=== PATIENT | male | born 1970 | race Caucasian/White ===

== ENCOUNTER → 2019-11-21 | Day surgery (SDC) | payer BC ==
[2019-11-18 08:52] VITALS: BMI 31.7
[~2019-11-21] MED LIST: LACTATED RINGERS 1,000 ML IV SCH; LIDOCAINE 1% INJ 10MG/ML (20 ML MDV) ONE; PROPOFOL 10 MG/ML 20 ML VIAL IV ONE
[2019-11-21 09:47] VITALS: RESP 16; TEMP 97.6
--- NOTE | 2019-11-21 10:58 | P.PCN ---
Date of Procedure: 11/21/19 Description of Procedure: BRIEF HISTORY: Patient is a 49-year-old female presenting for screening malignant neoplasm colon. Denies any prior colonoscopy. Denies any family history of colon cancer. Denies any change in bowels, blood per rectum or abdominal pain. PROCEDURE PERFORMED: Colonoscopy with polypectomy. PREOPERATIVE DIAGNOSIS: Screening for malignant neoplasm, no prior colonoscopy. ESTIMATED BLOOD LOSS: Minimal. IV sedation per Anesthesia. PROCEDURE: After informed consent was obtained, the patient, was brought into the endoscopy unit. IV sedation was administered by Anesthesia under continuous monitoring. Digital rectal examination was normal. Initially the Olympus CF-190 flexible video colonoscope was then inserted in the rectum, gradually advanced into the cecum without any difficulty. Careful examination was performed as the scope was gradually being withdrawn. Ileocecal valve and the appendiceal orifice were visualized and appeared normal. Prep was fair with a large amount of semisolid stool in the right colon which could not be completely lavaged, impeding complete visualization of the mucosa. Mucosa of the cecum, ascending colon, transverse colon, descending colon, sigmoid colon, and rectum which was able to be visualized did appear normal. Diminutive 2 mm transverse colon polyp removed with cold forcep polypectomy. Retroflexion was performed in the rectum and no lesions were seen. The patient tolerated the procedure well. IMPRESSION: Diminutive 2 mm transverse colon polyp removed with cold forcep polypectomy. Fair prep with a large amount of semisolid stool in the right colon which could not completely be lavaged and suctioned, prohibiting complete visualization of the mucosa. RECOMMENDATIONS: Findings of this examination were discussed with the patient and his family. Okay to resume diet. Okay to resume medications. Await pathology from polypectomy. Based on prep recommendation would be for repeat colonoscopy in 1 year, with consideration for a 2 day prep if the patient did not complete his prep prior to today's procedure.
[2019-11-21 11:25] VITALS: BP 127/86; PULSE 63
== END ==
LOC: ORWHC2ENDO 09:10
PROVIDERS: ATTEND Internal Medicine
DX: Z12.11 Encounter for screening for malignant neoplasm of colon (principal); K63.5 Polyp of colon; Z80.0 Family history of malignant neoplasm of digestive organs; Z87.891 Personal history of nicotine dependence; K21.9 Gastro-esophageal reflux disease without esophagitis; Z90.49 Acquired absence of other specified parts of digestive tract; I10 Essential (primary) hypertension; G47.33 Obstructive sleep apnea (adult) (pediatric); B19.20 Unspecified viral hepatitis C without hepatic coma; Z79.899 Other long term (current) drug therapy
CPT/HCPCS: 88305; 45380; J2001; J2704

== ENCOUNTER → 2019-12-27 | Outpatient (CLI) | payer BC ==
--- NOTE | 2019-12-27 08:05 | US ---
EXAMINATION TYPE: US liver DATE OF EXAM: 12/27/2019 COMPARISON: CT liver biopsy January 29, 2012. CLINICAL HISTORY: B18.2 CHRONIC VIRAL HEP C. Chronic Hep C EXAM MEASUREMENTS: Liver Length: 14.9 cm CBD: 0.7 cm Right Kidney: 10.3 x 5.3 x 5.1 cm Pancreas: wnl, tail obscured by overlying bowel gas Liver: Visualized mostly intercostally, visualized portions appeared wnl Gallbladder: Surgically absent Evidence for sonographic Katz's sign: No CBD: wnl for post ashwini Right Kidney: Cyst upper pole= 1.4 x 1.5 x 1.4 cm/ possible 6mm calculus lower pole Visualized portion of pancreas is unremarkable, portions are obscured by overlying bowel gas. Visuali zed liver is heterogeneously hyperechoic without intrahepatic ductal dilatation. Evaluation for focal masses suboptimal due to the heterogeneity. Simple appearing 1.4 cm thin-walled cyst right kidney up per pole level. Gallbladder noted surgically absent. IMPRESSION: Heterogeneous hyperechoic appearance of the liver consistent with diffuse fatty infiltrat ion and/or underlying hepatocellular disease. No ascites currently. Patient may benefit with ultrasou nd guided elastography evaluation.
[2019-12-27 08:32] LABS: Basophils % (A) 0 %; Eosinophils # (A) 0.1 k/uL (0-0.7); Eosinophils % (A) 2 %; HCT 45.9 % (39.0-53.0); HGB 15.9 gm/dL (13.0-17.5); Lymphocytes # (A) 2.1 k/uL (1.0-4.8); Lymphocytes % (A) 37 %; MCH 30.6 pg (25.0-35.0); MCHC 34.6 g/dL (31.0-37.0); MCV 88.2 fL (80.0-100.0); Mean Platelet Volume 7.5; Monocytes # (A) 0.3 k/uL (0-1.0); Monocytes % (A) 5 %; Neutrophils # (A) 3.1 k/uL (1.3-7.7); Neutrophils % (A) 55 %; Platelet Count 276 k/uL (150-450); Prothrombin Time 10.4 sec (9.0-12.0); RBC 5.21 m/uL (4.30-5.90); RDW 12.3 % (11.5-15.5); WBC 5.7 k/uL (3.8-10.6)
[2019-12-27 08:53] LABS: ALT 86 U/L (4-49); AST 58 U/L (17-59); African American GFR (CKD) >90 (>60 ml/min/1.73 sqM); Albumin 4.4 g/dL (3.5-5.0); Alkaline Phosphatase 50 U/L (38-126); Anion Gap 7 mmol/L; Blood Urea Nitrogen 18 mg/dL (9-20); Calcium 9.7 mg/dL (8.4-10.2); Carbon Dioxide 29 mmol/L (22-30); Chloride 103 mmol/L (98-107); Glucose 95 mg/dL (74-99); Non-African American GFR(CKD) 89 (>60 ml/min/1.73 sqM); Potassium 4.1 mmol/L (3.5-5.1); Sodium 139 mmol/L (137-145); Total Bilirubin 0.7 mg/dL (0.2-1.3); Total Protein 7.6 g/dL (6.3-8.2)
[2019-12-27 16:29] LABS: Alpha Fetoprotein, Tumor Mkr 4.2 ng/mL (0.0-7.9)
[2019-12-27 17:52] LABS: HIV 1 AB Non-Reactive (Non-Reactive); HIV 2 AB Non-Reactive (Non-Reactive); HIV AB P24 Non-Reactive (Non-Reactive); HIV P24 AG Non-Reactive (Non-Reactive)
[2019-12-27 18:09] LABS: Hepatitis A Antibody IgM Non-Reactive (Non-Reactive); Hepatitis B Surface Antigen Non-Reactive (Non-Reactive); Hepatitis C IgG Antibody Reactive (Non-Reactive)
[2019-12-27 18:10] LABS: Hepatitis B Core IgM Non-Reactive (Non-Reactive)
[2019-12-30 11:39] LABS: HCV Qualitative Result DETECTED (Not detected); HCV Quant Log 5.59 (<1.08)
== END | disposition home or self-care (01) ==
LOC: RADUSWWP 07:33
PROVIDERS: ATTEND Nurse Practitioner
DX: B18.2 Chronic viral hepatitis C (principal)
CPT/HCPCS: 76705; 80053; 80074; 82105; 85025; 85610; 87390; 87522

== ENCOUNTER → 2020-03-02 | Outpatient (CLI) | payer BC ==
[2020-03-02 09:13] LABS: Basophils % (A) 1 %; Eosinophils # (A) 0.1 k/uL (0-0.7); Eosinophils % (A) 2 %; HCT 46.3 % (39.0-53.0); HGB 16.2 gm/dL (13.0-17.5); Lymphocytes # (A) 2.5 k/uL (1.0-4.8); Lymphocytes % (A) 38 %; MCH 31.8 pg (25.0-35.0); MCV 90.8 fL (80.0-100.0); Mean Platelet Volume 7.9; Monocytes # (A) 0.4 k/uL (0-1.0); Monocytes % (A) 7 %; Neutrophils # (A) 3.3 k/uL (1.3-7.7); Neutrophils % (A) 50 %; Platelet Count 250 k/uL (150-450); RDW 12.7 % (11.5-15.5); WBC 6.6 k/uL (3.8-10.6)
[2020-03-02 09:25] LABS: Prothrombin Time 10.2 sec (9.0-12.0)
[2020-03-02 15:29] LABS: African American GFR (CKD) 82.4 (60.0-200.0); Albumin 4.5 g/dL (3.80-4.90); Albumin/Globulin Ratio 1.67 (1.60-3.17); Anion Gap 6.9 mmol/L (4.00-12.00); BUN/Creat Ratio 15.83 Ratio (12.00-20.00); Calcium 9.9 mg/dL (8.7-10.3); Carbon Dioxide 30.1 mmol/L (21.6-31.8); Globulin 2.7 g/dL (1.6-3.3); Non-African American GFR(CKD) 71.1 (60.0-200.0); Potassium 4.3 mmol/L (3.5-5.5); Total Protein 7.2 g/dL (6.2-8.2)
== END | disposition home or self-care (01) ==
LOC: LABWHC1 08:14
PROVIDERS: ATTEND Internal Medicine
DX: B18.2 Chronic viral hepatitis C (principal)
CPT/HCPCS: 36415; 80053; 85025; 85610; 87522

== ENCOUNTER → 2020-06-04 | Outpatient (CLI) | payer BC ==
[2020-06-04 08:45] LABS: Basophils # (A) 0.1 k/uL (0-0.2); Basophils % (A) 1 %; Eosinophils # (A) 0.1 k/uL (0-0.7); Eosinophils % (A) 1 %; HCT 48.5 % (39.0-53.0); HGB 16.5 gm/dL (13.0-17.5); Lymphocytes # (A) 2.6 k/uL (1.0-4.8); Lymphocytes % (A) 40 %; MCH 30.6 pg (25.0-35.0); MCV 89.8 fL (80.0-100.0); Mean Platelet Volume 7.7; Monocytes # (A) 0.4 k/uL (0-1.0); Monocytes % (A) 6 %; Neutrophils # (A) 3.2 k/uL (1.3-7.7); Neutrophils % (A) 49 %; Platelet Count 255 k/uL (150-450); RDW 12.5 % (11.5-15.5); WBC 6.4 k/uL (3.8-10.6)
[2020-06-04 15:32] LABS: African American GFR (CKD) 82.4 (60.0-200.0); Albumin 4.6 g/dL (3.80-4.90); Albumin/Globulin Ratio 1.7 (1.60-3.17); Anion Gap 7.3 mmol/L (4.00-12.00); BUN/Creat Ratio 13.33 Ratio (12.00-20.00); Carbon Dioxide 29.7 mmol/L (21.6-31.8); Globulin 2.7 g/dL (1.6-3.3); Non-African American GFR(CKD) 71.1 (60.0-200.0); Potassium 4.1 mmol/L (3.5-5.5); Total Bilirubin 0.6 mg/dL (0.3-1.2); Total Protein 7.3 g/dL (6.2-8.2)
== END | disposition home or self-care (01) ==
LOC: LABWHC1 08:20
PROVIDERS: ATTEND Nurse Practitioner
DX: B18.2 Chronic viral hepatitis C (principal)
CPT/HCPCS: 36415; 80053; 85025

== ENCOUNTER → 2020-07-24 | Outpatient (CLI) | payer BC ==
[2020-07-24 10:54] LABS: Basophils # (A) 0.1 k/uL (0-0.2); Basophils % (A) 1 %; Eosinophils # (A) 0.1 k/uL (0-0.7); Eosinophils % (A) 1 %; HCT 50.1 % (39.0-53.0); HGB 17.3 gm/dL (13.0-17.5); Lymphocytes # (A) 2.2 k/uL (1.0-4.8); Lymphocytes % (A) 27 %; MCH 31.4 pg (25.0-35.0); MCHC 34.6 g/dL (31.0-37.0); MCV 90.8 fL (80.0-100.0); Mean Platelet Volume 7.7; Monocytes # (A) 0.5 k/uL (0-1.0); Monocytes % (A) 6 %; Neutrophils # (A) 5.4 k/uL (1.3-7.7); Neutrophils % (A) 65 %; Platelet Count 270 k/uL (150-450); RBC 5.52 m/uL (4.30-5.90); RDW 12.2 % (11.5-15.5); WBC 8.3 k/uL (3.8-10.6)
[2020-07-24 16:18] LABS: INR 0.97 (0.90-1.11); Prothrombin Time 10.4 sec (9.9-11.9)
[2020-07-24 20:24] LABS: African American GFR (CKD) 82.4 (60.0-200.0); Albumin 4.6 g/dL (3.80-4.90); Albumin/Globulin Ratio 1.64 (1.60-3.17); Anion Gap 9.8 mmol/L (4.00-12.00); BUN/Creat Ratio 12.5 Ratio (12.00-20.00); Calcium 10.7 mg/dL (8.7-10.3); Carbon Dioxide 28.2 mmol/L (21.6-31.8); Globulin 2.8 g/dL (1.6-3.3); Non-African American GFR(CKD) 71.1 (60.0-200.0); Potassium 4.8 mmol/L (3.5-5.5); Total Bilirubin 0.7 mg/dL (0.2-1.2); Total Protein 7.4 g/dL (6.2-8.2)
== END | disposition home or self-care (01) ==
LOC: LABWHC1 08:28
PROVIDERS: ATTEND Nurse Practitioner
DX: B18.2 Chronic viral hepatitis C (principal)
CPT/HCPCS: 36415; 80053; 85025; 85610; 87522

== ENCOUNTER → 2020-09-28 | Outpatient (CLI) | payer BC | END | disposition home or self-care (01) | LOC: LABWHC1 11:53 | PROVIDERS: ATTEND Family Medicine | DX: Z20.828 Contact with and (suspected) exposure to other viral communicable diseases (principal) | CPT/HCPCS: U0003; C9803 ==

== ENCOUNTER → 2021-06-25 | Outpatient (CLI) | payer BC ==
--- NOTE | 2021-06-25 16:23 | CONS ---
CONSULTATION REASON FOR CONSULTATION: Sleep apnea. Dariel is a 50-year-old male patient was diagnosed having obstructive sleep apnea back in 2011. At that time the patient was given the diagnosis of obstructive sleep apnea through a sleep center at [facility]. He was given a ResMed F9 series, which is an APAP unit, at a minimum pressure of 5 and a maximum pressure of 20, and he was given a full-face mask. He used the treatment for several years and ultimately quit the treatment. He is coming in for reevaluation, knowing that he has become more symptomatic. He is snoring loudly and he quits breathing at night. He sleeps between 10 p.m. and 4:30 a.m. in the morning and despite that he is quite somnolent and sleepy. His Lakeland score is at 11. He sleeps on his side. He takes a nap if given the opportunity to do so. No recent weight gain or weight loss. He drinks coffee around 3-4 cups of coffee in the morning. No head trauma. No meningitis. No history of stroke. Comorbid conditions include hypertension and previous history of hepatitis C without evidence of any chronic liver disease. PAST MEDICAL HISTORY: WICHO, hepatitis C infection, and hypertension. PAST SURGICAL HISTORY: Past surgical history includes tendon repair involving right index finger and broken and cholecystectomy. DRUG ALLERGIES: NOT KNOWN. OUTPATIENT MEDICATION LIST: Outpatient medication list includes lisinopril/hydrochlorothiazide 20/25 one tablet a day. SOCIAL HISTORY: The patient is an ex-smoker, quit smoking 8 years ago. No history of alcoholism. No history of IV drugs. FAMILY HISTORY: His sister has obstructive sleep apnea. Father committed suicide. Mother of complications of aneurysm. REVIEW OF SYSTEMS: Fourteen-point review of system was done. Positive findings are all mentioned in history of present illness. He has gained weight on the order of 30 pounds over the past 10 years. No recent weight gain. PHYSICAL EXAMINATION: VITAL SIGNS: BP is 147/90, pulse 107, respirations 20, temperature 97.7, saturation 94% on room air. Height is 5 feet 9 inches, weight 222. Lakeland score is 11. BMI 32.7. Neck size 16-1/2 inches. GENERAL APPEARANCE: Calm, comfortable. HEAD: Atraumatic, normocephalic. NECK: Supple. No JVD. No goiter or neck masses. Mallampati class 4. He has macrognathia. LUNGS: Clear to auscultation. HEART: Heart sounds are regular rate and rhythm. Normal S1, S2. No S3, S4. No murmurs. ABDOMEN: Soft, nontender. No organomegaly. EXTREMITIES: No edema. No cyanosis or clubbing. NEUROLOGIC: Awake and alert. There is no focal neurological deficit. PSYCHIATRIC: Negative for anxiety or depression. IMPRESSION: 1. Obstructive sleep apnea coming for reevaluation. The patient was diagnosed having WICHO many years back, treated for several years with CPAP therapy and currently he is off treatment. He is quite symptomatic. Lakeland score is at 11. 2. Hypertension. 3. History of hepatitis C without any signs of encephalopathy. PLAN: 1. Will do a home sleep study to reevaluate the presence of obstructive sleep apnea and its severity. 2. The patient seems to be committed to CPAP therapy. Based on the results of the home sleep study we will make further recommendations on treatment options. He has used a full-face mask in the past, and we will try to do the same. If the home sleep study shows significant sleep apnea, we will proceed with APAP treatment for this patient. Will continue to follow. MMODL / IJN: [id number] /
== END | disposition home or self-care (01) ==
LOC: SLEEP 13:28
PROVIDERS: ATTEND Internal Medicine Critical Care Medicine
DX: G47.33 Obstructive sleep apnea (adult) (pediatric) (principal); I10 Essential (primary) hypertension
CPT/HCPCS: 99211

== ENCOUNTER → 2025-01-12 | Outpatient (CLI) | payer OTHER ==
--- NOTE | 2025-01-12 16:33 | XR ---
EXAMINATION TYPE: XR pelvis AP view, XR sacrum coccyx, XR lumbar spine 2 or 3V DATE OF EXAM: 01/12/2025 4:27 PM COMPARISON: None CLINICAL INDICATION: Male, 54 years old with history of S30.0XXA CONTUSION OF LOWER BACK AND PELVIS, INITI; pain [facility] TECHNIQUE: XR pelvis AP view, XR sacrum coccyx, XR lumbar spine 2 or 3V, examined in a single project ion. Frontal mild views of the sacrum and coccyx. Frontal, frontal, lateral and coned in L5-S1 lateral views of the lumbar spine. FINDINGS: There is no evidence of fracture or dislocation. There is no soft tissue abnormality. No a bnormal calcifications are present. The spine appears intact. The hips appear intact. Osteophyte form ation of the superior acetabulum bilaterally with mild joint space narrowing. The sacrum and coccyx d o not demonstrate an acute fracture on radiography. Mild degeneration of the spine with osteophyte formation disc space and facet joint arthropathy. This course of the arterial vasculature. IMPRESSION: 1. No acute osseous pathology. 2. Mild degeneration changes of the hip. 3. No definitive evidence for sacral/coccyx fracture. [facility], , 01/12/2025 4:31 PM
== END | disposition home or self-care (01) ==
LOC: RADXRMAIN 15:58
PROVIDERS: ATTEND Emergency Medicine
DX: S30.0XXA Contusion of lower back and pelvis, initial encounter (principal); M16.10 Unilateral primary osteoarthritis, unspecified hip; M53.3 Sacrococcygeal disorders, not elsewhere classified
CPT/HCPCS: 72100; 72170; 72220